=== PATIENT | female | born 1960 | race African-American/Black ===

== ENCOUNTER 2016-10-01 01:23 | Emergency (ER) | payer MEDICARE, MEDICAID ==
--- NOTE | 2016-10-01 03:10 | ER Document Report ---
ED Cardiac - General Chief Complaint: Chest Pain Stated Complaint: CHEST DISCOMFORT/NOSE BLEED Time Seen by Provider: 10/01/16 03:08 Mode of Arrival: Ambulatory Information source: Patient Notes: Patient is a 55 year old -[place] female with a history of CHF and a defibrillator who presents to the ER today for feeling of her heart fluttering off and on over the past month, anxiety and nosebleeds off and on for the past 6 days. Patient states that her chest does not hurt but when she has the fluttering she does get short of breath and nauseated. She has not seen the meter attendant" a very long time." She takes medications for blood pressure. She states that she has had nosebleeds before but not as frequently as she has had these over the past 6 days. She states that she holds pressure the nosebleeds stop within 15 minutes every time. She also states that she has been getting headaches when the nosebleeds come on as well. She denies any history of heart attack or stroke. TRAVEL OUTSIDE OF THE [place] IN LAST 30 DAYS: No - Related Data Allergies/Adverse Reactions: No Known Allergies Allergy (Unverified 06/03/15 16:07) Past Medical History - General Information source: Patient - Social History Smoking Status: Former Smoker Chew tobacco use (# tins/day): No Frequency of alcohol use: None Drug Abuse: None Family History: Reviewed & Not Pertinent Patient has suicidal ideation: No Patient has homicidal ideation: No - Past Medical History Cardiac Medical History: Reports: Hx Congestive Heart Failure, Hx Hypertension Neurological Medical History: Reports: Hx Seizures Renal/ Medical History: Denies: Hx Peritoneal Dialysis Past Surgical History: Reports: Hx Cardiac Surgery - defib placement 2005-, Hx Section - x2, Hx Tonsillectomy - Immunizations Hx Diphtheria, Pertussis, Tetanus Vaccination: Yes Review of Systems - Review of Systems Constitutional: No symptoms reported EENT: See HPI Cardiovascular: See HPI Respiratory: See HPI Gastrointestinal: No symptoms reported Genitourinary: No symptoms reported Female Genitourinary: No symptoms reported Musculoskeletal: No symptoms reported Skin: No symptoms reported Hematologic/Lymphatic: No symptoms reported Neurological/Psychological: No symptoms reported Physical Exam - Vital signs Vitals: Temp Pulse Resp BP Pulse Ox 98.9 F 70 20 195/95 H 99 10/01/16 01:34 10/01/16 01:34 10/01/16 01:34 10/01/16 01:34 10/01/16 01:34 - Notes Notes: PHYSICAL EXAMINATION: GENERAL: Well-appearing and in no acute distress. HEAD: Atraumatic, normocephalic. EYES: Pupils equal round and reactive to light, extraocular movements intact, sclera anicteric, conjunctiva are normal. ENT: ear canals without erythema or foreign body, TMs pearly lieberman with good bony landmarks, nares patent with dried blood in left nostril only, oropharynx clear without exudates. Moist mucous membranes. NECK: Normal range of motion, supple without lymphadenopathy LUNGS: CTAB and equal. No wheezes rales or rhonchi. HEART: chest nontender, Regular rate and rhythm without murmurs ABDOMEN: Soft, no tenderness. No guarding, no rebound BACK: no vertebral tenderness, normal ROM GI/: no CVA tenderness EXTREMITIES: Normal range of motion, no pitting edema. No cyanosis. NEUROLOGICAL: Cranial nerves grossly intact. Normal sensory/motor exams. PSYCH: Normal mood, normal affect. SKIN: Warm, Dry, normal turgor, no rashes or lesions noted Course - Re-evaluation Re-evalutation: 10/01/16 04:21 Reece is unremarkable today including normal cardiac enzymes, chest x-ray negative for any acute pathology, EKG reveals a normal sinus rhythm at a rate of 69 bpm, I have no EKG to compare this to. No evidence of ischemia. Patient' s symptoms have been going on for a month. She needs to follow-up with her meter attendant in [place]. - Vital Signs Vital signs: Temp Pulse Resp BP Pulse Ox 98.9 F 70 20 195/95 H 99 10/01/16 01:34 10/01/16 01:34 10/01/16 01:34 10/01/16 01:34 10/01/16 01:34 - Laboratory Result Diagrams: 10/01/16 03:22 10/01/16 03:22 Laboratory results interpreted by me: 10/01/16 10/01/16 03:22 03:22 WBC 3.3 L RDW 14.5 H Seg Neutrophils % 35.8 L Lymphocytes % 46.6 H Absolute Neutrophils 1.2 L Sodium 145.4 H Chloride 115 H Est GFR ( Amer) 53 L Est GFR (Non-Af Amer) 44 L Creatine Kinase 221 H Discharge - Discharge Clinical Impression: Palpitations, Anxiety, Nosebleed Hypertension Qualifiers: Hypertension type: essential hypertension Qualified Code(s): I10 - Essential ( primary) hypertension Additional Instructions: Return immediately for any new or worsening symptoms. Follow up with meter attendant/primary care provider, call tomorrow to make followup appointment. Prescriptions: Carvedilol 25 mg PO BID #14 tablet Referrals: TOM DOYLE MD [Primary Care Provider] - Follow up as needed
[2016-10-01] MEDS ORDERED: HYDRALAZINE HCL 50 MG TABLET PO ONE (03:41)
[2016-10-01] MEDS ORDERED: CARVEDILOL 12.5 MG TABLET PO ONE (03:41)
[2016-10-01] MEDS ORDERED: BACITRACIN ZINC OINTMENT 15 GM TP ONE (03:41)
--- NOTE | 2016-10-01 03:49 | RADIOLOGY REPORT (SQ) ---
EXAM DESCRIPTION: CHEST SINGLE VIEW COMPLETED DATE/TIME: 10/01/2016 3:25 am REASON FOR STUDY: chest pain COMPARISON: 12/12/2008. EXAM PARAMETERS: NUMBER OF VIEWS: One view. TECHNIQUE: Single frontal radiographic view of the chest acquired. RADIATION DOSE: NA LIMITATIONS: None. FINDINGS: LUNGS AND PLEURA: No opacities, masses or pneumothorax. No pleural effusion. MEDIASTINUM AND HILAR STRUCTURES: No masses. Contour normal. HEART AND VASCULAR STRUCTURES: Mild chronic enlargement of the cardiac silhouette. BONES: No acute findings. HARDWARE: Left cardiac stimulation device and leads. OTHER: No other significant finding. IMPRESSION: NO ACUTE RADIOGRAPHIC FINDING IN THE CHEST. TECHNICAL DOCUMENTATION: JOB ID: [id number]
[2016-10-01 03:56] LABS: ABSOLUTE EOSINOPHILS # (AUTO) 0.2 10^3/uL (0.0-0.6); ABSOLUTE LYMPHOCYTES (AUTO) 1.5 10^3/uL (0.5-4.7); ABSOLUTE MONOCYTES (AUTO) 0.4 10^3/uL (0.1-1.4); ABSOLUTE NEUT (AUTO) 1.2 10^3/uL (1.7-8.2); APPEARANCE,URINE SLIGHTLY-CLOUDY; BASOPHILS % (AUTO) 0.3 % (0-2); BILIRUBIN,URINE NEGATIVE (NEGATIVE); EOSINOPHILS % (AUTO) 5.6 % (0-6); GLUCOSE, URINE NEGATIVE (NEGATIVE); HEMATOCRIT 38.3 % (36.0-47.0); HEMOGLOBIN 12.3 g/dL (12.0-15.5); HGB HCT DIFFERENCE -1.4; KETONES,URINE NEGATIVE (NEGATIVE); LEUKOCYTE ESTERASE,URINE NEGATIVE (NEGATIVE); LYMPHOCYTES % (AUTO) 46.6 % (13-45); MEAN CORPUSCULAR HEMOGLOBIN 30.1 pg (27.0-33.4); MEAN CORPUSCULAR HGB CONC 32.2 g/dL (32.0-36.0); MEAN CORPUSCULAR VOLUME 93 fl (80-97); MONOCYTES % (AUTO) 11.7 % (3-13); NITRITE,URINE NEGATIVE (NEGATIVE); PROTEIN,URINE NEGATIVE (NEGATIVE); RED CELL DISTRIBUTION WIDTH 14.5 % (11.5-14.0); SEGMENTED NEUTROPHILS % (AUTO) 35.8 % (42-78); URINE SPECIFIC GRAVITY 1.018; UROBILINOGEN,URINE NEGATIVE mg/dL (<2.0); WHITE BLOOD COUNT 3.3 10^3/uL (4.0-10.5)
[2016-10-01 03:59] LABS: ALANINE AMINOTRANSFERASE 34 U/L (9-52); ALBUMIN 3.6 g/dL (3.5-5.0); ALKALINE PHOSPHATASE 60 U/L (38-126); ANION GAP 8 (5-19); ASPARTATE AMINO TRANSFERASE 31 U/L (14-36); BILIRUBIN,DIRECT 0.4 mg/dL (0.0-0.4); BILIRUBIN,TOTAL 0.5 mg/dL (0.2-1.3); BLOOD UREA NITROGEN 12 mg/dL (7-20); CALCIUM 9.2 mg/dL (8.4-10.2); CARBON DIOXIDE 22 mmol/L (22-30); CHLORIDE 115 mmol/L (98-107); CREATINE KINASE 221 U/L (30-135); CREATININE RESULT 1.25 mg/dL (0.52-1.25); GLUCOSE 97 mg/dL (75-110); LIPASE 153.2 U/L (23-300); POTASSIUM 3.7 mmol/L (3.6-5.0); SODIUM 145.4 mmol/L (137-145); TOTAL PROTEIN 7.4 g/dL (6.3-8.2)
[2016-10-01 04:11] LABS: CREATINE KINASE MB 3.46 ng/mL (<4.55)
[2016-10-01 04:12] LABS: TROPONIN I < 0.012 ng/mL
[2016-10-01 06:01] VITALS: BP 142/79
--- NOTE | 2016-10-01 07:54 | EKG REPORT ---
SEVERITY:- ABNORMAL ECG - SINUS RHYTHM FIRST DEGREE AV BLOCK LVH WITH SECONDARY REPOLARIZATION ABNORMALITY ANTERIOR Q WAVES, POSSIBLY DUE TO LVH : Confirmed by: Theo Lewis MD 01-Oct-2016 07:52:36
== END 2016-10-01 05:30 | disposition home or self-care (01) ==
LOC: ER 01:23
DX: R04.0 Epistaxis (principal); F41.9 Anxiety disorder, unspecified; R00.2 Palpitations; I10 Essential (primary) hypertension; R06.02 Shortness of breath; R11.0 Nausea; Z79.899 Other long term (current) drug therapy; R51 Headache; Z87.891 Personal history of nicotine dependence; Z95.810 Presence of automatic (implantable) cardiac defibrillator
CPT/HCPCS: 93005; 99285; 36415; 82553; 82550; 83690; 85025; 80053; 81001; 84484; 71010; 93010; A9270 ×2; J3490

== ENCOUNTER → 2018-01-03 | Outpatient (CLI) | payer MEDICARE, MEDICAID ==
--- NOTE | 2018-01-03 10:30 | RADIOLOGY REPORT (SQ) ---
EXAM DESCRIPTION: U/S RETROPERITON (RENAL/AORTA) COMPLETED DATE/TIME: 01/03/2018 10:15 am REASON FOR STUDY: ABN KIDNEY FUCTION STUDIES R94.4 ABNORMAL RESULTS OF KIDNEY FUNCTION STUDIES Z12. 31 ENCNTR SCREEN MAMMOGRAM FOR MALIGNANT NEOPLASM OF CASIE COMPARISON: 01/31/2018 TECHNIQUE: Dynamic and static grayscale images acquired of the kidneys and bladder and recorded on P ACS. Additional selected color Doppler and spectral images recorded. LIMITATIONS: None. FINDINGS: RIGHT KIDNEY: The right kidney measures 8.8 cm in length on the current examination, comp ared to 10.2 cm on the prior examination. Mild diffuse increased echogenicity, may be on the basis o f underlying medical renal disease. Slight cortical thinning suggested. No solid or suspicious mas ses. No hydronephrosis. No calcifications. LEFT KIDNEY: The left kidney measures 8.3 cm in length on the current examination, compared to 8.4 c m on the prior study, basically unchanged in size. No solid or suspicious masses. No hydronephrosis. No calcifications. BLADDER: No masses. OTHER FINDINGS: No other significant finding. IMPRESSION: 1. Mild diffuse increased echogenicity of the right kidney, may be on the basis of under lying medical renal disease. 2. No hydronephrosis. 3. Additional findings as above. TECHNICAL DOCUMENTATION: JOB ID: [id number]- All Rights Reserved Reading location - IP/workstation name: [email or web address]
--- NOTE | 2018-01-05 16:24 | WOMENS IMAGING REPORT ---
EXAM DESCRIPTION: 3D SCREENING MAMMO BILAT COMPLETED DATE/TIME: 01/03/2018 9:16 am REASON FOR STUDY: SCREENING MAMMO R94.4 ABNORMAL RESULTS OF KIDNEY FUNCTION STUDIES Z12.31 ENCNTR SCREEN MAMMOGRAM FOR MALIGNANT NEOPLASM OF CASIE COMPARISON: Multiple since 2008 TECHNIQUE: Standard craniocaudal and mediolateral oblique views of each breast recorded using digita l acquisition and breast tomosynthesis. LIMITATIONS: None. FINDINGS: Findings present which are benign by mammographic criteria. No suspicious masses, calcifi cations or architectural distortion. Pertinent benign findings: Stable benign bilateral intramammary lymph nodes. Read with the assistance of CAD. .[facility] - R2 Cenova Version 1.3 .[facility] Imaging - R2 Cenova Version 1.3 .[facility] - R2 Cenova Version 2.4 .[facility] [place] - R2 Cenova Version 2.4 .[facility] - R2 [employer] Version 9.2 Benign mammographic findings may include one or more of the following: Smooth masses, popcorn/rim/co arse calcifications, asymmetries, post-procedure changes, and lesions with long-standing stability. IMPRESSION: BENIGN MAMMOGRAPHIC FINDINGS. BIRADS 2 BREAST DENSITY: a. The breasts are almost entirely fatty. BIRAD: 2 BENIGN FINDING(S) RECOMMENDATION: RECOMMENDATION: ROUTINE SCREENING Please continue yearly bilateral screening tomosynthesis in January 2018 COMMENT: The patient has been notified of the results by letter per SA requirements. Additional no tification policies are in place for contacting patient with suspicious or incomplete findings. Quality ID #[id number]: The [employer] recommends an annual screening mammogram for women aged 40 years or over. This facility utilizes a reminder system to ensure that all patients receive reminder letters, and/or direct phone calls for appointments. This includes reminders for routine scr eening mammograms, diagnostic mammograms, or other Breast Imaging Interventions when appropriate. Th is patient will be placed in the appropriate reminder system. The [employer] (ACR) has developed recommendations for screening MRI of the breast s in certain patient populations, to be used in conjunction with mammography. Breast MRI surveillanc e may be appropriate for women with more than 20% lifetime risk of developing breast cancer as deter mined by genetic testing, significant family history of the disease, or history of mantle radiation f or Hodgkins Disease. ACR Practice Guidelines 2008. DBT Technology DBT is a type of tomographic mammography. With conventional mammography, overlapping breast tissue ma y make lesions difficult to detect, even with good compression. DBT uses an x-ray tube that rotates a round the breast, taking images at different angles. These images are then combined to create thin sl ices of the breast that the radiologist can view as a 3D reconstruction. The Holo[employer]v unit can perform full-field digital mammograms (2D imaging); or DBT (3D imaging); or both, in a combination mode that quickly performs both the mammogram and the tomosynthesis scan while the breast is still compressed. PQRS 6045F: Fluoroscopic imaging is not utilized for breast tomosynthesis. TECHNICAL DOCUMENTATION: FINDING NUMBER: (1) ASSESSMENT: (1) JOB ID: [id number] [employer]- All Rights Reserved Reading location - IP/workstation name: [email or web address]
== END ==
LOC: WI 09:30
PROVIDERS: ATTEND Internal Medicine
DX: Z12.31 Encounter for screening mammogram for malignant neoplasm of breast (principal); R94.4 Abnormal results of kidney function studies
CPT/HCPCS: 76770; 77063; 77067

== ENCOUNTER 2018-03-02 16:43 | Observation (INO) | payer MEDICARE, MEDICAID ==
[2018-03-02 17:25] LABS: ABSOLUTE EOSINOPHILS # (AUTO) 0.2 10^3/uL (0.0-0.6); ABSOLUTE LYMPHOCYTES (AUTO) 1.2 10^3/uL (0.5-4.7); ABSOLUTE MONOCYTES (AUTO) 0.3 10^3/uL (0.1-1.4); ABSOLUTE NEUT (AUTO) 1.1 10^3/uL (1.7-8.2); BASOPHILS % (AUTO) 0.4 % (0-2); EOSINOPHILS % (AUTO) 6.3 % (0-6); HEMATOCRIT 37.3 % (36.0-47.0); HEMOGLOBIN 12.1 g/dL (12.0-15.5); LYMPHOCYTES % (AUTO) 43.1 % (13-45); MEAN CORPUSCULAR HEMOGLOBIN 30.2 pg (27.0-33.4); MEAN CORPUSCULAR HGB CONC 32.3 g/dL (32.0-36.0); MEAN CORPUSCULAR VOLUME 93 fl (80-97); PLATELET COUNT 172 10^3/uL (150-450); RED CELL DISTRIBUTION WIDTH 14.2 % (11.5-14.0); SEGMENTED NEUTROPHILS % (AUTO) 40.2 % (42-78); TOTAL CELLS COUNTED % (AUTO) 100 %; WHITE BLOOD COUNT 2.7 10^3/uL (4.0-10.5)
--- NOTE | 2018-03-02 17:31 | RADIOLOGY REPORT (SQ) ---
EXAM DESCRIPTION: CHEST SINGLE VIEW COMPLETED DATE/TIME: 03/02/2018 5:22 pm REASON FOR STUDY: bed 3 cp COMPARISON: 12/12/2008 EXAM PARAMETERS: NUMBER OF VIEWS: One view. TECHNIQUE: Single frontal radiographic view of the chest acquired. RADIATION DOSE: NA LIMITATIONS: None. FINDINGS: LUNGS AND PLEURA: No opacities, masses or pneumothorax. No pleural effusion. MEDIASTINUM AND HILAR STRUCTURES: No masses. Contour normal. HEART AND VASCULAR STRUCTURES: Heart is enlarged. No failure. BONES: No acute findings. HARDWARE: Battery pack and leads remain in place. OTHER: No other significant finding. IMPRESSION: Cardiomegaly. No consolidation or failure. TECHNICAL DOCUMENTATION: JOB ID: [id number] [employer]- All Rights Reserved Reading location - IP/workstation name: [email or web address]
[2018-03-02 17:45] LABS: ALANINE AMINOTRANSFERASE 18 U/L (9-52); ALBUMIN 3.6 g/dL (3.5-5.0); ALKALINE PHOSPHATASE 55 U/L (38-126); ANION GAP 11 (5-19); ASPARTATE AMINO TRANSFERASE 25 U/L (14-36); BILIRUBIN,DIRECT 0.1 mg/dL (0.0-0.4); BILIRUBIN,TOTAL 0.3 mg/dL (0.2-1.3); BLOOD UREA NITROGEN 15 mg/dL (7-20); CALCIUM 9.2 mg/dL (8.4-10.2); CARBON DIOXIDE 23 mmol/L (22-30); CHLORIDE 110 mmol/L (98-107); CREATINE KINASE 146 U/L (30-135); GLUCOSE 93 mg/dL (75-110); POTASSIUM 4.3 mmol/L (3.6-5.0); SODIUM 144.3 mmol/L (137-145); TOTAL PROTEIN 7.2 g/dL (6.3-8.2)
[2018-03-02 17:57] LABS: CREATINE KINASE MB 2.34 ng/mL (<4.55)
[2018-03-02 18:00] LABS: TROPONIN I < 0.012 ng/mL
--- NOTE | 2018-03-02 19:23 | ER Document Report ---
ED General - General Chief Complaint: Chest Pain Stated Complaint: CHEST PAIN Time Seen by Provider: 03/02/18 17:39 Notes: Patient is a 57-year-old female with history of congestive heart failure and hypertension that presents to the emergency department for chief complaint of chest pain. Patient states that the pain started this morning around 11 AM, seem to be exertional in nature, with associated shortness of breath. Had a pain with breathing as well. She continued of the pain even after she sat down , and thought it would go away but it persisted. She described the pain as a heaviness in her chest, that she described as a 2 out of 10, but it was persistent and constant. She called EMS, she was given aspirin, nitroglycerin which seemed to resolve her chest pain. Currently she denies having any chest pain. And overall feels better. But she was concerned about this episode. Denies prior history of VA, CAD or stents. But she does have an AICD pacemaker , for CHF. Past Medical History: CHF, hypertension Past Surgical History: AICD placement Social History: Denies current tobacco, alcohol or illicit drug use. Family History: Reviewed and noncontributory for presenting illness Allergies: Reviewed, see documented allergy list. REVIEW OF SYSTEMS: Unless otherwise stated in this report the patient's positive and negative responses for review of systems for constitutional, eyes, ENT, cardiovascular, respiratory, gastrointestinal, neurological, genitourinary, musculoskeletal, and integumentary systems and related systems to the presenting problem are either as stated in the HPI or were not pertinent or were negative for the symptoms and/or complaints related to the presenting medical problem. PHYSICAL EXAMINATION: Vital signs reviewed, nursing noted reviewed. GENERAL: Well-appearing, well-nourished and in no acute distress. HEAD: Atraumatic, normocephalic. EYES: Eyes appear normal, extraocular movements intact, sclera anicteric, conjunctiva are normal. ENT: nares patent, oropharynx clear without exudates. Moist mucous membranes. NECK: Normal range of motion, supple without lymphadenopathy LUNGS: Breath sounds clear to auscultation bilaterally and equal. No wheezes rales or rhonchi. HEART: Regular rate and rhythm without murmurs ABDOMEN: Soft, nontender, normoactive bowel sounds. No rebound, guarding, or rigidity. No masses appreciated. EXTREMITIES: Nontender, good range of motion, no pitting or edema. NEUROLOGICAL: No focal neurological deficits. Moves all extremities spontaneously Motor and sensory grossly intact on exam. PSYCH: Normal mood, normal affect. SKIN: Warm, Dry, normal turgor, no rashes or lesions noted on exposed skin TRAVEL OUTSIDE OF THE [place] IN LAST 30 DAYS: No - Related Data Allergies/Adverse Reactions: No Known Allergies Allergy (Unverified 03/14/17 01:05 EDT) Past Medical History - Social History Smoking Status: Unknown if Ever Smoked Family History: Reviewed & Not Pertinent Patient has suicidal ideation: No Patient has homicidal ideation: No - Past Medical History Cardiac Medical History: Reports: Hx Congestive Heart Failure, Hx Hypertension Neurological Medical History: Reports: Hx Seizures Renal/ Medical History: Denies: Hx Peritoneal Dialysis Past Surgical History: Reports: Hx Cardiac Surgery - defib placement 2005-, Hx Section - x2, Hx Tonsillectomy - Immunizations Hx Diphtheria, Pertussis, Tetanus Vaccination: Yes Physical Exam - Vital signs Vitals: Temp Pulse Ox 98.2 F 97 03/02/18 17:07 03/02/18 17:07 Course - Re-evaluation Re-evalutation: Patient seen and examined vital signs reviewed. Laboratory data and imaging were ordered as appropriate for the patient's presenting symptoms and complaint, with consideration of any critical or life threatening conditions that may be associated with their obtained history and exam as noted above. Patient was treated with aspirin and nitro by EMS, and chest pain is resolved at this time Results were reviewed when available and demonstrated negative troponin, EKG did not demonstrate acute ischemia The patient was re-evaluated and was stable Evaluation was most consistent with chest pain, nonspecific, heart score was high enough, the patient warranted observation, and serial troponin testing, discussed with her primary care physician Results were discussed with the patient at this point after careful consideration I feel that that patient should be admitted to the hospital. This was discussed with the patient that it is in the best interest for their care to be admitted for further evaluation and management. Patient agreed with this plan of care. A call was placed to the admitted physician, Dr. Kaur who graciously accepted the patient onto their service. *Note is created using voice recognition software and may contain spelling, syntax or grammatical errors. Laboratory 03/02/18 03/02/18 03/02/18 17:10 17:10 17:10 WBC 2.7 L RBC 4.00 Hgb 12.1 Hct 37.3 MCV 93 MCH 30.2 MCHC 32.3 RDW 14.2 H Plt Count 172 Seg Neutrophils % 40.2 L Lymphocytes % 43.1 Monocytes % 10.0 Eosinophils % 6.3 H Basophils % 0.4 Absolute Neutrophils 1.1 L Absolute Lymphocytes 1.2 Absolute Monocytes 0.3 Absolute Eosinophils 0.2 Absolute Basophils 0.0 Sodium 144.3 Potassium 4.3 Chloride 110 H Carbon Dioxide 23 Anion Gap 11 BUN 15 Creatinine 1.61 H Est GFR ( Amer) 40 L Est GFR (Non-Af Amer) 33 L Glucose 93 Calcium 9.2 Total Bilirubin 0.3 Direct Bilirubin 0.1 Neonat Total Bilirubin Not Reportable Neonat Direct Bilirubin Not Reportable Neonat Indirect Bili Not Reportable AST 25 ALT 18 Alkaline Phosphatase 55 Creatine Kinase 146 H CK-MB (CK-2) 2.34 Troponin I < 0.012 Total Protein 7.2 Albumin 3.6 Chest X-Ray 03/02/18 16:47 IMPRESSION: Cardiomegaly. No consolidation or failure. - Vital Signs Vital signs: Temp Pulse Resp BP Pulse Ox 98.2 F 97 03/02/18 17:07 03/02/18 17:07 - Laboratory Result Diagrams: 03/02/18 17:10 03/02/18 17:10 Laboratory results interpreted by me: 03/02/18 03/02/18 17:10 17:10 WBC 2.7 L RDW 14.2 H Seg Neutrophils % 40.2 L Eosinophils % 6.3 H Absolute Neutrophils 1.1 L Chloride 110 H Creatinine 1.61 H Est GFR ( Amer) 40 L Est GFR (Non-Af Amer) 33 L Creatine Kinase 146 H - EKG Interpretation by Me Additional EKG results interpreted by me: EKG demonstrates paced ventricular rhythm with a rate of 64 bpm, left axis deviation, QTC 463 ms, T wave inversions in leads I and aVL, compared with prior EKG from 03/14/2017, which at that time the patient did not have a defibrillator therefore there are changes. Discharge - Discharge Clinical Impression: Chest pain Qualifiers: Chest pain type: unspecified Qualified Code(s): R07.9 - Chest pain, unspecified Condition: Stable Disposition: ADMITTED OBSERVATION Admitting Provider: Vincent Unit Admitted: Telemetry
[2018-03-02] MEDS ORDERED: NORMAL SALINE 1000 ML 1,000 ML IV PRN (21:24)
[2018-03-02 21:45] LABS: INTERNATIONAL RATION (INR) 0.96; PARTIAL THROMBOPLASTIN TIME 35.4 SEC (23.5-35.8); PROTHROMBIN TIME 13.3 SEC (11.4-15.4)
[2018-03-02 22:10] LABS: FREE T4 (FREE THYROXINE) 0.74 ng/dL (0.78-2.19)
[2018-03-02 22:24] LABS: THYROID STIMULATING HORMONE 3.78 uIU/mL (0.47-4.68)
--- NOTE | 2018-03-02 22:44 | EKG REPORT ---
SEVERITY:- ABNORMAL ECG - SINUS RHYTHM VENTRICULAR PREMATURE COMPLEX LEFT BUNDLE BRANCH BLOCK V PACED BEAT : Confirmed by: Jonathan Booker 02-Mar-2018 22:43:05
--- NOTE | 2018-03-02 22:49 | RADIOLOGY REPORT (SQ) ---
US RETROPERITONEUM LIMITED HISTORY: Acute kidney injury. COMPARISON: 01/03/2018 FINDINGS: The right kidney measures 9.8 cm in length, which is normal size. The cortex has normal thickness and echogenicity. There is no right-sided kidney stone, mass or hydronephrosis. The left kidney measures 9.7 cm in length, which is normal size. The cortex has normal thickness and echogenicity. There is no left-sided kidney stone, mass or hydronephrosis. Bladder appears unremarkable. IMPRESSION: Normal appearance of the kidneys.
[2018-03-02] MEDS: HYDRALAZINE HCL 50 MG TABLET PO SCH (23:21)
[2018-03-02] MEDS: HEPARIN SOD (PORCINE) 5,000 UNIT/ML 1 ML SYRINGE SUBCUT SCH (23:22)
[2018-03-02] MEDS: LEVETIRACETAM 500 MG TABLET PO SCH (23:22)
[2018-03-02] MEDS: SACUBITRIL/VALSARTAN 24 MG/26 MG TABLET PO SCH (23:55)
[2018-03-03 02:41] LABS: ABSOLUTE EOSINOPHILS # (AUTO) 0.1 10^3/uL (0.0-0.6); ABSOLUTE MONOCYTES (AUTO) 0.3 10^3/uL (0.1-1.4); BASOPHILS % (AUTO) 0.4 % (0-2); RED CELL DISTRIBUTION WIDTH 14.2 % (11.5-14.0); TOTAL CELLS COUNTED % (AUTO) 100 %
[2018-03-03 02:46] LABS: MEAN CORPUSCULAR VOLUME 93 fl (80-97)
[2018-03-03 02:55] LABS: ALANINE AMINOTRANSFERASE 11 U/L (9-52); ALBUMIN 3.2 g/dL (3.5-5.0); ALKALINE PHOSPHATASE 56 U/L (38-126); ANION GAP 6 (5-19); ASPARTATE AMINO TRANSFERASE 24 U/L (14-36); BILIRUBIN,DIRECT 0.3 mg/dL (0.0-0.4); BILIRUBIN,TOTAL 0.5 mg/dL (0.2-1.3); BLOOD UREA NITROGEN 18 mg/dL (7-20); CARBON DIOXIDE 23 mmol/L (22-30); CHLORIDE 112 mmol/L (98-107); GLUCOSE 110 mg/dL (75-110); SODIUM 141.4 mmol/L (137-145); TOTAL PROTEIN 6.7 g/dL (6.3-8.2); TRIGLYCERIDES 94 mg/dL (<150)
[2018-03-03 03:02] LABS: ABSOLUTE NEUT (AUTO) 1.5 10^3/uL (1.7-8.2); EOSINOPHILS % (AUTO) 4.9 % (0-6); HEMATOCRIT 36.1 % (36.0-47.0); HEMOGLOBIN 11.8 g/dL (12.0-15.5); LYMPHOCYTES % (AUTO) 34.1 % (13-45); MEAN CORPUSCULAR HEMOGLOBIN 30.4 pg (27.0-33.4); MEAN CORPUSCULAR HGB CONC 32.8 g/dL (32.0-36.0); PLATELET COUNT 154 10^3/uL (150-450); RED BLOOD COUNT 3.89 10^6/uL (3.72-5.28); SEGMENTED NEUTROPHILS % (AUTO) 50.6 % (42-78)
[2018-03-03 03:05] LABS: DIRECT LDL 110 mg/dL (<100)
[2018-03-03 03:06] LABS: CREATINE KINASE MB 2.49 ng/mL (<4.55); TROPONIN I 0.019 ng/mL
[2018-03-03] MEDS: HEPARIN SOD (PORCINE) 5,000 UNIT/ML 1 ML SYRINGE SUBCUT SCH ×2 (06:00→13:39)
[2018-03-03] MEDS: HYDRALAZINE HCL 50 MG TABLET PO SCH ×2 (06:00→13:39)
[2018-03-03 09:13] LABS: CREATINE KINASE MB 2.62 ng/mL (<4.55); TROPONIN I 0.018 ng/mL
[2018-03-03] MEDS: SACUBITRIL/VALSARTAN 24 MG/26 MG TABLET PO SCH (10:22)
[2018-03-03] MEDS: LEVETIRACETAM 500 MG TABLET PO SCH (10:47)
[2018-03-03 18:21] VITALS: BP 150/86
--- NOTE | 2018-03-03 19:25 | PDOC H&P ---
History of Present Illness Admission Date/PCP: 03/02/18 20:08 TOM DOYLE MD History of Present Illness: CHRISTIANO SCHUSTER is a 57 year old female, She has a history of nonischemic cardiomyopathy, she came to the emergency room for evaluation of chest pain, the chest pain is atypical in character, it is not provoked by activity, it is not relieved by rest. She has a pacemaker defibrillator, she is supposed to have replacement of the device next week. She was admitted for observation, 3 sets of cardiac enzymes negative for acute myocardial infarction. Past Medical History Cardiac Medical History: Reports: Hypertension, Other - Chronic nonischemic dilated cardiomyopathy Neurological Medical History: Reports: Seizures Past Surgical History Past Surgical History: Reports: Section - x2, Tonsillectomy Social History Smoking Status: Never Smoker Frequency of Alcohol Use: None Hx Recreational Drug Use: No Hx Prescription Drug Abuse: No Family History Family History: Reviewed & Not Pertinent Parental Family History Reviewed: Yes Children Family History Reviewed: Yes Sibling(s) Family History Reviewed.: Yes Medication/Allergy Home Medications: Furosemide [Lasix 40 mg Tablet] 40 mg PO DAILY 03/02/18 Hydralazine HCl [Apresoline 50 mg Tablet] 50 mg PO Q8 03/02/18 Levetiracetam [Keppra 500 mg Tablet] 500 mg PO Q12 03/02/18 Sacubitril/Valsartan [Entresto 24 mg/26 mg Tablet] 1 tab PO Q12 03/02/18 Carvedilol 3.125 mg PO BID #90 tablet 03/03/18 Allergies/Adverse Reactions: No Known Allergies Allergy (Unverified 03/14/17 01:05 EDT) Review of Systems Constitutional: ABSENT: chills, fever(s), headache(s), weight gain, weight loss Eyes: ABSENT: visual disturbances Ears: ABSENT: hearing changes Cardiovascular: PRESENT: chest pain Respiratory: ABSENT: cough, hemoptysis Gastrointestinal: ABSENT: abdominal pain, constipation, diarrhea, hematemesis, hematochezia, nausea, vomiting Genitourinary: ABSENT: dysuria, hematuria Musculoskeletal: ABSENT: joint swelling Integumentary: ABSENT: rash, wounds Neurological: ABSENT: abnormal gait, abnormal speech, confusion, dizziness, focal weakness, syncope Psychiatric: ABSENT: anxiety, depression, homidical ideation, suicidal ideation Endocrine: ABSENT: cold intolerance, heat intolerance, menstrual abnormalities, polydipsia, polyuria Hematologic/Lymphatic: ABSENT: easy bleeding, easy bruising, lymphadenopathy Physical Exam Vital Signs: Temp Pulse Resp BP Pulse Ox 98.6 F 66 16 150/86 H 100 03/03/18 18:19 03/03/18 18:19 03/03/18 18:19 03/03/18 18:19 03/03/18 18:19 Intake & Output 03/02/18 03/03/18 03/04/18 06:59 06:59 06:59 Intake Total 222 814 Balance 222 814 Weight 121.8 kg General appearance: PRESENT: no acute distress, well-developed, well-nourished Head exam: PRESENT: atraumatic, normocephalic Eye exam: PRESENT: conjunctiva pink, EOMI, PERRLA Ear exam: PRESENT: normal external ear exam Mouth exam: PRESENT: moist, tongue midline Neck exam: PRESENT: full ROM Respiratory exam: PRESENT: clear to auscultation keyonna Cardiovascular exam: PRESENT: RRR, +S1, +S2 Pulses: PRESENT: normal dorsalis pedis pul, +2 pedal pulses bilateral Vascular exam: PRESENT: normal capillary refill GI/Abdominal exam: PRESENT: normal bowel sounds, soft Rectal exam: PRESENT: deferred Neurological exam: PRESENT: alert, awake, oriented to person, oriented to place , oriented to time, oriented to situation, CN II-XII grossly intact Psychiatric exam: PRESENT: appropriate affect, normal mood Skin exam: PRESENT: dry, intact, warm Results Laboratory Results: 03/03/18 02:30 03/03/18 02:30 03/03/18 03/03/18 02:30 02:30 WBC 3.0 L RBC 3.89 Hgb 11.8 L Hct 36.1 MCV 93 MCH 30.4 MCHC 32.8 RDW 14.2 H Plt Count 154 Seg Neutrophils % 50.6 Lymphocytes % 34.1 Monocytes % 10.0 Eosinophils % 4.9 Basophils % 0.4 Absolute Neutrophils 1.5 L Absolute Lymphocytes 1.0 Absolute Monocytes 0.3 Absolute Eosinophils 0.1 Absolute Basophils 0.0 Sodium 141.4 Potassium 4.0 Chloride 112 H Carbon Dioxide 23 Anion Gap 6 BUN 18 Creatinine 1.43 H Est GFR ( Amer) 45 L Est GFR (Non-Af Amer) 38 L Glucose 110 Calcium 9.0 Total Bilirubin 0.5 AST 24 ALT 11 Alkaline Phosphatase 56 Total Protein 6.7 Albumin 3.2 L Triglycerides 94 Cholesterol 218.50 H LDL Cholesterol Direct 110 H VLDL Cholesterol 19.0 HDL Cholesterol 61 03/02/18 03/02/18 03/02/18 20:25 20:25 20:25 Creatine Kinase 137 H CK-MB (CK-2) 2.05 Troponin I 0.017 03/03/18 03/03/18 03/03/18 02:30 02:30 08:28 Creatine Kinase 128 110 CK-MB (CK-2) 2.49 Troponin I 0.019 03/03/18 08:28 Creatine Kinase CK-MB (CK-2) 2.62 Troponin I 0.018 Impressions: Renal Ultrasound 03/02/18 00:00 IMPRESSION: Normal appearance of the kidneys. Chest X-Ray 03/02/18 16:47 IMPRESSION: Cardiomegaly. No consolidation or failure. Assessment & Plan - Diagnosis (1) Chest pain Qualifiers: Chest pain type: unspecified Qualified Code(s): R07.9 - Chest pain, unspecified Is this a current diagnosis for this admission?: Yes Plan: Patient was admitted for observation, 3 sets of cardiac enzymes negative for acute DC (2) Nonischemic dilated cardiomyopathy Is this a current diagnosis for this admission?: Yes (3) Morbid obesity with BMI of 40.0-44.9, adult Is this a current diagnosis for this admission?: Yes (4) Seizure disorder Is this a current diagnosis for this admission?: Yes
--- NOTE | 2018-03-03 19:29 | PDOC DISCHARGE SUMMARY ---
General - Admit/Disc Date/PCP Admission Date/Primary Care Provider: 03/02/18 20:08 TOM DOYLE MD Discharge Date: 03/03/18 - Discharge Diagnosis (1) Chest pain Is this a current diagnosis for this admission?: Yes (2) Nonischemic dilated cardiomyopathy Is this a current diagnosis for this admission?: Yes (3) Morbid obesity with BMI of 40.0-44.9, adult Is this a current diagnosis for this admission?: Yes (4) Seizure disorder Is this a current diagnosis for this admission?: Yes (5) Acute kidney injury Is this a current diagnosis for this admission?: Yes Summary: Kidney ultrasound was negative for hydronephrosis - Additional Information Discharge Diet: Cardiac Discharge Activity: Activity As Tolerated, Balance Activity w/Rest, Energy Conservation Prescriptions: Carvedilol 3.125 mg PO BID #90 tablet Home Medications: Furosemide [Lasix 40 mg Tablet] 40 mg PO DAILY 03/02/18 Hydralazine HCl [Apresoline 50 mg Tablet] 50 mg PO Q8 03/02/18 Levetiracetam [Keppra 500 mg Tablet] 500 mg PO Q12 03/02/18 Sacubitril/Valsartan [Entresto 24 mg/26 mg Tablet] 1 tab PO Q12 03/02/18 Carvedilol 3.125 mg PO BID #90 tablet 03/03/18 History of Present Illness History of Present Illness: CHRISTIANO SCHUSTER is a 57 year old female, She has a history of nonischemic cardiomyopathy, she came to the emergency room for evaluation of chest pain, the chest pain is atypical in character, it is not provoked by activity, it is not relieved by rest. She has a pacemaker defibrillator, she is supposed to have replacement of the device next week. She was admitted for observation, 3 sets of cardiac enzymes negative for acute myocardial infarction. Hospital Course Hospital Course: Patient was admitted for observation for evaluation and management of chest pain , 3 sets of cardiac enzymes negative for acute [place]. She also have acute kidney injury, felt to be prerenal in etiology, she is on diuretic furosemide. This was treated with IV fluid with improvement in the serum creatinine Physical Exam Vital Signs: Temp Pulse Resp BP Pulse Ox 98.6 F 66 16 150/86 H 100 03/03/18 18:19 03/03/18 18:19 03/03/18 18:19 03/03/18 18:19 03/03/18 18:19 Intake & Output 03/02/18 03/03/18 03/04/18 06:59 06:59 06:59 Intake Total 222 814 Balance 222 814 Weight 121.8 kg General appearance: PRESENT: no acute distress Head exam: PRESENT: atraumatic, normocephalic Eye exam: PRESENT: conjunctiva pink, EOMI, PERRLA Neck exam: PRESENT: full ROM Respiratory exam: PRESENT: clear to auscultation keyonna Cardiovascular exam: PRESENT: RRR, +S1, +S2 Vascular exam: PRESENT: normal capillary refill GI/Abdominal exam: PRESENT: normal bowel sounds, soft Rectal exam: PRESENT: deferred Neurological exam: PRESENT: alert, awake, oriented to person, oriented to place , oriented to time, oriented to situation, CN II-XII grossly intact Psychiatric exam: PRESENT: appropriate affect, normal mood Skin exam: PRESENT: dry, intact, warm Results Laboratory Results: 03/03/18 02:30 03/03/18 02:30 03/03/18 03/03/18 02:30 02:30 WBC 3.0 L RBC 3.89 Hgb 11.8 L Hct 36.1 MCV 93 MCH 30.4 MCHC 32.8 RDW 14.2 H Plt Count 154 Seg Neutrophils % 50.6 Lymphocytes % 34.1 Monocytes % 10.0 Eosinophils % 4.9 Basophils % 0.4 Absolute Neutrophils 1.5 L Absolute Lymphocytes 1.0 Absolute Monocytes 0.3 Absolute Eosinophils 0.1 Absolute Basophils 0.0 Sodium 141.4 Potassium 4.0 Chloride 112 H Carbon Dioxide 23 Anion Gap 6 BUN 18 Creatinine 1.43 H Est GFR ( Amer) 45 L Est GFR (Non-Af Amer) 38 L Glucose 110 Calcium 9.0 Total Bilirubin 0.5 AST 24 ALT 11 Alkaline Phosphatase 56 Total Protein 6.7 Albumin 3.2 L Triglycerides 94 Cholesterol 218.50 H LDL Cholesterol Direct 110 H VLDL Cholesterol 19.0 HDL Cholesterol 61 03/02/18 03/02/18 03/02/18 20:25 20:25 20:25 Creatine Kinase 137 H CK-MB (CK-2) 2.05 Troponin I 0.017 03/03/18 03/03/18 03/03/18 02:30 02:30 08:28 Creatine Kinase 128 110 CK-MB (CK-2) 2.49 Troponin I 0.019 03/03/18 08:28 Creatine Kinase CK-MB (CK-2) 2.62 Troponin I 0.018 Impressions: Renal Ultrasound 03/02/18 00:00 IMPRESSION: Normal appearance of the kidneys. Chest X-Ray 03/02/18 16:47 IMPRESSION: Cardiomegaly. No consolidation or failure. Qualifiers - * PATIENT BEING DISCHARGED WITH ANY OF THE FOLLOWING DIAGNOSIS: No
== END 2018-03-03 19:03 | disposition home or self-care (01) ==
LOC: ER 16:43 → EH 20:08 → 3W 23:40
PROVIDERS: ADMIT Internal Medicine; ATTEND Internal Medicine
DX: R07.89 Other chest pain (principal); I42.0 Dilated cardiomyopathy; E66.01 Morbid (severe) obesity due to excess calories; Z68.41 Body mass index [BMI] 40.0-44.9, adult; G40.909 Epilepsy, unspecified, not intractable, without status epilepticus; N17.9 Acute kidney failure, unspecified; I11.0 Hypertensive heart disease with heart failure; I50.9 Heart failure, unspecified; Z79.899 Other long term (current) drug therapy; Z95.810 Presence of automatic (implantable) cardiac defibrillator
CPT/HCPCS: 93005; 99285; 36415 ×2; 84439; 82553 ×2; 82550 ×2; 83735; 84443; 85025 ×2; 85610; 85730; 80053 ×2; 84484 ×2; 83036; 80061; 83880; 71045; 76775; 93010; G0378 ×2; J1644 ×2; A9270 ×4; J3490